=== PATIENT | male | born 1980 | race Two or more races ===

== ENCOUNTER 2020-04-21 16:19 | Emergency (ER) | payer SELFPAY ==
--- NOTE | 2020-04-21 18:09 | ER Document Report ---
ED Medical Screen (RME) - General Chief Complaint: Foot Injury Stated Complaint: FOOT INJURY Time Seen by Provider: 04/21/20 17:58 Primary Care Provider: JOSE E SANABRIA [Primary Care Provider] - Follow up as needed Notes: Patient is a 39-year-old male who presents the emergency department with a chief complaint of a cut to his right lower extremity. Patient states that about 2 months ago he was walking by a trailer and ended up cutting his right anterior lower leg. Patient states that yesterday he ended up taking some penicillin from [place]. He took 500 mg every 8 hours. Patient states that he does not feel the wound is getting any better. Patient does not know if he has diabetes. He is a current everyday smoker. Denies any pain. Exam: About 3 cm wound noted to right lower extremity. I have greeted and performed a rapid initial assessment of this patient. A comprehensive ED assessment and evaluation of the patient, analysis of test results and completion of medical decision making process will be conducted by an additional ED providers. - Related Data Allergies/Adverse Reactions: No Known Allergies Allergy (Verified 04/21/20 17:55) Home Medications: pentiver Past Medical History - Social History Chew tobacco use (# tins/day): No Frequency of alcohol use: Occasional Drug Abuse: None Physical Exam - Vital signs Vitals: Temp Pulse Resp BP Pulse Ox 98.7 F 74 18 144/86 H 98 04/21/20 16:58 04/21/20 16:58 04/21/20 16:58 04/21/20 16:58 04/21/20 16:58 Course - Vital Signs Vital signs: Temp Pulse Resp BP Pulse Ox 98.7 F 74 18 144/86 H 98 04/21/20 17:56 04/21/20 16:58 04/21/20 16:58 04/21/20 16:58 04/21/20 16:58 Doctor's Discharge - Discharge Referrals: JOSE E SANABRIA [Primary Care Provider] - Follow up as needed
[2020-04-21 18:41] LABS: ABSOLUTE BASOPHILS # (AUTO) 0.1 10^3/uL (0.0-0.2); ABSOLUTE EOSINOPHILS # (AUTO) 0.2 10^3/uL (0.0-0.6); ABSOLUTE LYMPHOCYTES (AUTO) 2.5 10^3/uL (0.5-4.7); ABSOLUTE MONOCYTES (AUTO) 0.8 10^3/uL (0.1-1.4); BASOPHILS % (AUTO) 0.9 % (0-2); EOSINOPHILS % (AUTO) 2.2 % (0-6); HEMATOCRIT 48.7 % (37.9-51.0); HEMOGLOBIN 16.5 g/dL (13.5-17.0); LYMPHOCYTES % (AUTO) 25.7 % (13-45); MEAN CORPUSCULAR HEMOGLOBIN 33.6 pg (27.0-33.4); MEAN CORPUSCULAR HGB CONC 33.9 g/dL (32.0-36.0); MEAN CORPUSCULAR VOLUME 99 fl (80-97); MONOCYTES % (AUTO) 8.5 % (3-13); PLATELET COUNT 230 10^3/uL (150-450); RED BLOOD COUNT 4.93 10^6/uL (4.35-5.55); RED CELL DISTRIBUTION WIDTH 13.7 % (11.5-14.0); SEGMENTED NEUTROPHILS % (AUTO) 62.7 % (42-78); TOTAL CELLS COUNTED % (AUTO) 100 %; WHITE BLOOD COUNT 9.6 10^3/uL (4.0-10.5)
[2020-04-21 18:56] LABS: ALBUMIN 4.1 g/dL (3.5-5.0); ALKALINE PHOSPHATASE 85 U/L (38-126); ANION GAP 6 (5-19); ASPARTATE AMINO TRANSFERASE 25 U/L (17-59); BILIRUBIN,TOTAL 0.5 mg/dL (0.2-1.3); BLOOD UREA NITROGEN 12 mg/dL (7-20); CALCIUM 9.2 mg/dL (8.4-10.2); CARBON DIOXIDE 26 mmol/L (22-30); CHLORIDE 104 mmol/L (98-107); GLUCOSE 93 mg/dL (75-110); POTASSIUM 4.1 mmol/L (3.6-5.0); TOTAL PROTEIN 7.4 g/dL (6.3-8.2)
[2020-04-21] MEDS ORDERED: MUPIROCIN 2% OINTMENT 22 GM TP ONE (22:35)
[2020-04-21] MEDS ORDERED: DIPH/PERTUSS(ACELL)/TETANUS VAC/PF 0.5 ML SYR (>=10YO) IM ONE (22:35)
[2020-04-21] MEDS ORDERED: CEPHALEXIN 500 MG CAPSULE PO ONE (22:35)
--- NOTE | 2020-04-21 22:45 | ER Document Report ---
ED Extremity Problem, Lower - General Chief Complaint: Foot Injury Stated Complaint: FOOT INJURY Time Seen by Provider: 04/21/20 17:58 Primary Care Provider: [facility] [Provider Group] - Follow up as needed [facility] [Provider Group] - Follow up as needed SAV MCCAULEY MD [ACTIVE STAFF] - Follow up as needed JOSE E SANABRIA [NO LOCAL MD] - Follow up as needed MINOO IRIZARRY MD [ACTIVE STAFF] - Follow up as needed Mode of Arrival: Ambulatory Information source: Patient Notes: 39-year-old male presented to ED for complaint of pain to his right lower extremity. He states he cut it about 2 months ago with a trailer hitch. He states yesterday started taking some penicillin from [place]. He states he took 500 mg every 8 hours for today. He states he does not think the wound is getting any better but is not treated this since he injured his leg 2 months ago. He states his did clean it with some soap and water and peroxide but otherwise he has not seen a doctor at all. He states he thought he might have diabetes and would like to get that checked out. He does smoke 1 to 2 packs a day every day. He states the pain is not bad he was just worried if he had diabetes and if he needed more treatment. - HPI Patient complains to provider of: Injury, Pain Location: Leg - Right lower leg Occurred: Other - 2 months ago Where: Outdoors Onset/Duration: Gradual Quality of pain: No pain Severity: None Pain Level: Denies Context: Laceration - Infected laceration with cellulitis Recent injury: Yes - 2 months ago Associated symptoms: Other - States wound is draining and he was concerned about Exacerbated by: Walking Relieved by: Nothing - Related Data Allergies/Adverse Reactions: No Known Allergies Allergy (Verified 04/21/20 17:55) Home Medications: pentiver Past Medical History - General Information source: Patient - Social History Smoking Status: Current Every Day Smoker Cigarette use (# per day): Yes - 1 to 2 packs a day Chew tobacco use (# tins/day): No Smoking Education Provided: Yes - 3 minutes Frequency of alcohol use: Occasional Drug Abuse: None Lives with: Family Family History: Reviewed & Not Pertinent Patient has homicidal ideation: No - Past Medical History Cardiac Medical History: Reports: None Pulmonary Medical History: Reports: None EENT Medical History: Reports: None Neurological Medical History: Reports: None Endocrine Medical History: Reports: None Renal/ Medical History: Reports: None Malignancy Medical History: Reports None GI Medical History: Reports: None Musculoskeletal Medical History: Reports None Skin Medical History: Reports None Psychiatric Medical History: Reports: None Traumatic Medical History: Reports: None Infectious Medical History: Reports: None Surgical Hx: Negative Past Surgical History: Reports: None - Immunizations Hx Diphtheria, Pertussis, Tetanus Vaccination: Yes - 04/21/2020 Review of Systems - Review of Systems Constitutional: No symptoms reported EENT: No symptoms reported Cardiovascular: No symptoms reported Respiratory: No symptoms reported Gastrointestinal: No symptoms reported Genitourinary: No symptoms reported Male Genitourinary: No symptoms reported Musculoskeletal: Ankle swelling Skin: Other - Cellulitis and open wound to the right lower leg x2 months Hematologic/Lymphatic: No symptoms reported Neurological/Psychological: No symptoms reported Physical Exam - Vital signs Vitals: Temp Pulse Resp BP Pulse Ox 98.7 F 74 18 144/86 H 98 04/21/20 16:58 04/21/20 16:58 04/21/20 16:58 04/21/20 16:58 04/21/20 16:58 Interpretation: Normal - General General appearance: Appears well, Alert - HEENT Head: Normocephalic, Atraumatic Eyes: Normal Pupils: PERRL - Respiratory Respiratory status: No respiratory distress Chest status: Nontender Breath sounds: Normal Chest palpation: Normal - Cardiovascular Rhythm: Regular Heart sounds: Normal auscultation Murmur: No - Abdominal Inspection: Normal Distension: No distension Bowel sounds: Normal Tenderness: Nontender Organomegaly: No organomegaly - Back Back: Normal, Nontender - Extremities General upper extremity: Normal inspection, Nontender, Normal color, Normal ROM, Normal temperature General lower extremity: Nontender, Normal ROM, Normal temperature, Normal weight bearing. No: Luis's sign Calf: Laceration - 2-month-old laceration, Other - Open draining wound on the lower right leg states he cut it about 2 months ago with erythema surrounding the area.. No: Tender, Unable to bear weight Ankle: Edema Foot: Edema - Neurological Neuro grossly intact: Yes Cognition: Normal Orientation: AAOx4 Jennifer Coma Scale Eye Opening: Spontaneous Jennifer Coma Scale Verbal: Oriented Perley Coma Scale Motor: Obeys Commands Jennifer Coma Scale Total: 15 Speech: Normal Motor strength normal: LUE, RUE, LLE, RLE Sensory: Normal - Psychological Associated symptoms: Normal affect, Normal mood - Skin Skin Temperature: Warm Skin Moisture: Dry Skin Color: Normal Course - Re-evaluation Re-evalutation: 04/22/20 02:14 Patient was treated with Keflex wound was cleaned with Shur-Clens and saline patted dry and Bactroban applied with dressing. Patient was prescribed Bactroban and Keflex and instructed to follow-up with her primary care or return to the ED within the next 2 to 3 days or sooner if it got any worse. Patient verbalized understanding and agreement with treatment plan. Patient was instructed to use Epson salt soaks 3 times a day before applying the Bactroban. - Vital Signs Vital signs: Temp Pulse Resp BP Pulse Ox 98.2 F 67 16 165/93 H 93 04/21/20 23:39 04/21/20 23:39 04/21/20 23:39 04/21/20 23:39 04/21/20 23:39 - Laboratory Result Diagrams: 04/21/20 18:20 04/21/20 18:20 Laboratory results interpreted by me: 04/21/20 04/21/20 18:20 18:20 MCV 99 H MCH 33.6 H Sodium 136.2 L Discharge - Discharge Clinical Impression: Open wound of right lower leg Qualifiers: Encounter type: initial encounter Qualified Code(s): S81.801A - Unspecified open wound, right lower leg, initial encounter Condition: Stable Disposition: HOME, SELF-CARE Additional Instructions: CELLULITIS: You have an infection of your skin and underlying soft tissues called cellulitis. This is due to bacteria, which can enter through any break in the skin, or even through an irritated hair follicle. Untreated, cellulitis will usually worsen. Antibiotics are required. Usually, warm packs or warm soaks, and elevation of the infected area are recommended. You should start getting better within 24 to 36 hours. Most infections respond quickly to the right medication. Follow-up care is important, however, to check for abscess (boil) formation, unsuspected foreign body, or resistant infection. If you develop fever, chills, or if the area of infection is becoming rapidly more swollen or painful, call the doctor at once. You have a draining wound where you cut yourself 2 months ago. The CBC is normal you do not have diabetes. I have put you on Keflex and that I want you to take 4 times a day till completed Cephalexin The antibiotic you've been prescribed is a member of the cephalosporin class. This type of antibiotic covers a wide variety of infections, including those of the skin, lungs, and urinary tract. It's useful for staph infections. This antibiotic is slightly similar to the penicillin family. In rare cases, a person who is allergic to penicillin will also be allergic to this medication. If you have had a severe allergic reaction to penicillin, and have not taken this antibiotic since that time, notify your doctor. Antibiotics which cover many germs ("broad spectrum" antibiotics) are more likely to cause diarrhea or "yeast" infections. Women prone to vaginal yeast problems may suffer an attack after taking this antibiotic. In infants, oral thrush (white spots "stuck" on the cheek) or yeast diaper rash may result. See your doctor if these problems occur. Call at once if you develop itching, hives, shortness of breath, or lightheadedness. Epsom Salt Soaks Soak the wound area in a container of warm epsom salt water. If you can't get the wound area into a bucket or arellano, use a folded towel soaked in the epsom salt solution and apply to the area. Use clean hot tap water (about the temperature of a very warm bath), mixing in about one (1) teaspoon for every pint of water. Two gallon --> 16 teaspoons Epsom Salts One gallon --> 8 teaspoons Epsom Salts Two quarts --> 4 teaspoons Epsom Salts One quart --> 2 teaspoons Epsom Salts Soak the wound for about 20 minutes while gently moving it around in the water. Repeat this four (4) times a day. Bactroban Ointment Bactroban is very effective against the germs that cause infection within the skin. It's useful for impetigo and other superficial infections. Deeper infections require antibiotics by mouth or by shot. Apply the medicine three times a day for one week, or longer if your doctor has advised it. Stop the medicine and call your doctor if you develop large blisters, severe itching, increasing pain, swelling, fever, or spreading redness. FOLLOW-UP CARE: If you have been referred to a physician for follow-up care, call the physicians office for an appointment as you were instructed or within the next two days. If you experience worsening or a significant change in your symptoms, notify the physician immediately or return to the Emergency Department at any time for re-evaluation. Return to the ED on if your wound is not improving you have not followed up with her primary care Prescriptions: Mupirocin [Bactroban 2% Ointment 22 gm] 1 applic TP TID #1 tube Cephalexin Monohydrate [Keflex 500 mg Capsule] 500 mg PO QID #20 capsule Forms: Elevated Blood Pressure, Smoking Cessation Education, Return to Work Referrals: JOSE E SANABRIA [NO LOCAL MD] - Follow up as needed [facility] [Provider [facility]] - Follow up as needed [facility] [Provider [facility]] - Follow up as needed MINOO IRIZARRY MD [ACTIVE STAFF] - Follow up as needed SAV MCCAULEY MD [ACTIVE STAFF] - Follow up as needed
[2020-04-21 23:50] VITALS: BP 165/93
== END 2020-04-21 23:41 | disposition home or self-care (01) ==
LOC: ER 16:19
DX: S81.801A Unspecified open wound, right lower leg, initial encounter (principal); L03.115 Cellulitis of right lower limb; M79.604 Pain in right leg; R60.0 Localized edema; W22.8XXA Striking against or struck by other objects, initial encounter; F17.210 Nicotine dependence, cigarettes, uncomplicated; Z79.899 Other long term (current) drug therapy
CPT/HCPCS: 99406; 99283; 90471; 36415; 82962; 85025; 80053; 83036; 90715; J3490